=== PATIENT | male | born 1980 | race Two or more races ===

== ENCOUNTER 2021-07-29 21:16 | Emergency (ER) | payer SELFPAY ==
[~2021-07-29] VITALS: Ht 175.3 cm; Wt 88.5 kg
--- NOTE | 2021-07-29 21:35 | NUR ---
PT BIBWIFE C/O LEFT INNER THIGH LACERATION FROM KNITTING TESTER. PT [id number] BREATHING EVENLY AND UNLABORED. UPON ASSESSMENT, NO ACTIVE BLEEDING. PT ATTACHED TO MONITOR AND POX. PT GIVEN BLANKET AND CALL LIGHT WITHIN REACH
[2021-07-29] MEDS ORDERED: LIDOCAINE MPF 1%-EPI 1:200,000 30 ML VIAL IJ ONE (21:49)
--- NOTE | 2021-07-29 22:19 | NUR ---
PA AT BEDSIDE FOR PROCEDURE
[2021-07-29] MEDS ORDERED: TDAP [DIPH/PERTUSSIS/TET] 0.5 ML VIAL IM ONE ×2 (22:37→23:00)
[2021-07-29] MEDS ORDERED: IBUP-1955 PO (22:40)
[2021-07-29] MEDS ORDERED: CEPH500C2 PO (22:40)
--- NOTE | 2021-07-29 22:48 | NUR ---
Patient discharged to home in stable condition. Written and verbal after care instructions given. Patient verbalizes understanding of instruction. RX given
[2021-07-29 22:49] VITALS: BP 134/80
== END 2021-07-29 22:48 | disposition home or self-care (01) ==
LOC: ER 21:20
DX: S71.112A Laceration without foreign body, left thigh, initial encounter (principal); Z79.899 Other long term (current) drug therapy; W27.8XXA Contact with other nonpowered hand tool, initial encounter; Y93.89 Activity, other specified; Y92.098 Other place in other non-institutional residence as the place of occurrence of the external cause; Y99.8 Other external cause status
CPT/HCPCS: 12002; 90471; 90715; 99283; J3490

== ENCOUNTER 2021-08-11 17:15 | Emergency (ER) | payer SELFPAY ==
[~2021-08-11] VITALS: Ht 177.8 cm; Wt 86.2 kg
[~2021-08-11 17:15] MED LIST: CEPH500C2 PO; IBUP-1955 PO
[2021-08-11 18:04] VITALS: BP 141/79
--- NOTE | 2021-08-11 18:29 | NUR ---
Patient discharged to home in stable condition. Written and verbal after care instructions given. Patient verbalizes understanding of instruction.
== END 2021-08-11 18:30 | disposition home or self-care (01) ==
LOC: ER 17:34
DX: S71.112D Laceration without foreign body, left thigh, subsequent encounter (principal); W27.8XXD Contact with other nonpowered hand tool, subsequent encounter